=== PATIENT | male | born 1995 | race Caucasian/White ===

== ENCOUNTER 2017-08-27 07:56 | Day surgery (SDC) | payer OTHER ==
[~2017-08-27] VITALS: Ht 167.6 cm; Wt 53.0 kg
[~2017-08-27 07:56] MED LIST: APIX5 PO; BUSP10TA PO; KEPP1000 PO
[2017-08-27] MEDS ORDERED: MUPIROCIN 2% OINT 1 APPLIC/GM SYR NASAL SCH (08:45)
[2017-08-27] MEDS ORDERED: CHLORHEXIDINE GLUCONATE 2 % 1 PACK (2 CLOTHS) TOPICAL SCH (08:45)
[2017-08-27] MEDS ORDERED: ceFAZolin 2 GM PREMIX 50 ML IV SCH (08:45)
[2017-08-27] MEDS ORDERED: POVIDONE IODINE 5% (ANTISEPSIS KIT) 4 APPLICATIONS EACH NARE SCH (08:45)
[2017-08-27] MEDS ORDERED: NS 1000 ML IV SCH (09:00)
[2017-08-27 09:29] VITALS: BP 103/68; RESP 18; TEMP 97.8
[2017-08-27 09:33] LABS: AUTOMATED NEUTROPHIL # 3.4 TH/MM3 (1.8-7.7); BASOPHIL % 0.8 % (0.0-2.0); EOSINOPHIL # 0.2 TH/MM3 (0-0.4); EOSINOPHIL % 3.2 % (0.0-4.0); HEMATOCRIT 39.8 % (39.0-51.0); HEMO FLAGS DIFF FINAL; LYMPH % 29.8 % (9.0-44.0); LYMPHOCYTE # 1.7 TH/MM3 (1.0-4.8); MEAN CORPUSCULAR HEMOGLOBIN 30.4 PG (27.0-34.0); MEAN CORPUSCULAR HGB CONC 34.6 % (32.0-36.0); MONO % 6.2 % (0.0-8.0); PLATELET COUNT 189 TH/MM3 (150-450); RED BLOOD COUNT 4.53 MIL/MM3 (4.50-5.90); RED CELL DISTRIBUTION WIDTH 12.4 % (11.6-17.2); WHITE BLOOD COUNT 5.7 TH/MM3 (4.0-11.0)
[2017-08-27 09:42] LABS: PROTHROMBIN TIME - PATIENT 11.3 SEC (9.8-11.6)
[2017-08-27] MEDS ORDERED: LACO100 PO (09:48)
[2017-08-27] MEDS ORDERED: LEVE10003 PO (09:48)
[2017-08-27] MEDS ORDERED: ZONI100C2 PO (09:48)
[2017-08-27] MEDS ORDERED: KEPP10002 PO (09:48)
[2017-08-27 09:51] LABS: APTT (PATIENT) 28.7 SEC (24.3-30.1)
[2017-08-27 10:06] LABS: POTASSIUM 3.8 MEQ/L (3.5-5.1)
[2017-08-27] MEDS ORDERED: ceFAZolin INJ 1,000 MG VIAL ONE (13:01)
[2017-08-27] MEDS ORDERED: MIDAZOLAM HCL 2 MG/2 ML VIAL ONE (13:01)
--- NOTE | 2017-08-27 15:16 | MP ---
cc: JOO JUARES M.D. DATE OF SURGERY: 08/27/2017. OPERATION: Loop recorder removal. INDICATIONS FOR THE PROCEDURE: Mr. Cruz is a 22-year-old gentleman with previous episode of syncope, loop recorder implanted around three years ago. The patient decided to have the loop removed. The risks, the nature and the benefits of the procedure were clearly stated to him. The risks include infection, bleeding, cardiac perforation and even . He understood and agreed to proceed. SURGEON: Aleksandr Ragsdale MD. DESCRIPTION OF THE PROCEDURE IN DETAIL: After written informed consent was obtained, the patient was brought to the EP lab where he was evaluated. Conscious sedation was initiated and maintained throughout the procedure using intravenous Versed and intravenous and Fentanyl. Once sedation was verified, the right parasternal area was anesthetized with 2% Xylocaine. Using the cutter, a than a centimeter incision was made. Subsequently the lead was removed. The border was reapproximated using #2 Ethibond suture. Dermabond adhesive was applied to the wound followed by a sterile pressure dressing. No incident report. CONCLUSION: Successful loop recorder removal. This is a loop from [employer]. This is a [employer]. COMMENTS AND RECOMMENDATIONS The patient is going to be transferred to the recovery room. He will observed and discharged home later today. Aleksandr Ragsdale MD HS/JCC /1:35 PM /3:06 PM
[2017-08-27] MEDS ORDERED: LACOSAMIDE 100 MG TAB PO SCH (21:00)
[2017-08-27] MEDS ORDERED: ZONISAMIDE 100 MG CAP PO SCH (21:00)
[2017-08-27] MEDS ORDERED: levETIRAcetam 500 MG TAB PO SCH ×2 (21:00)
== END 2017-08-27 14:04 | disposition home or self-care (01) ==
LOC: HDOC 07:56 → HDIC 07:57 → HDOC 14:04
PROVIDERS: ATTEND Internal Medicine Interventional Cardiology
DX: Z45.09 Encounter for adjustment and management of other cardiac device (principal); I47.1 Supraventricular tachycardia; R55 Syncope and collapse
CPT/HCPCS: 33284; 80048; 85025; 85610; 85730; 86850; 86900; 86901; J0690; J2250; J3010